=== PATIENT | female | born 1955 | race Caucasian/White ===

== ENCOUNTER → 2019-09-12 | Outpatient (CLI) | payer OTHER | END | disposition home or self-care (01) | LOC: RAD 08:15 | DX: J44.9 Chronic obstructive pulmonary disease, unspecified (principal) ==

== ENCOUNTER 2023-03-30 05:17 | Emergency (ER) | payer OTHER ==
[~2023-03-30] VITALS: Ht 157.5 cm; Wt 54.9 kg
[2023-03-30] MEDS ORDERED: METOPROLOL SUCC25 MG (05:28)
[2023-03-30] MEDS ORDERED: ATORVASTATIN CA40 MG (05:28)
[2023-03-30] MEDS ORDERED: METFORMIN HCL500 M3 (05:29)
== END 2023-03-30 08:13 ==
LOC: ER 05:17
DX: I10 Essential (primary) hypertension (principal); E11.9 Type 2 diabetes mellitus without complications; Z79.84 Long term (current) use of oral hypoglycemic drugs

== ENCOUNTER → 2025-06-23 | Emergency (ER) | payer OTHER ==
[~2025-06-23] MED LIST: ATORVASTATIN CA40 MG; METFORMIN HCL500 M3; METOPROLOL SUCC25 MG
== END | disposition home or self-care (01) ==
LOC: ER 19:33
DX: Z53.21 Procedure and treatment not carried out due to patient leaving prior to being seen by health care provider (principal)